=== PATIENT | female | born 1995 | race Caucasian/White ===

== ENCOUNTER 2022-12-27 12:03 | Emergency (ER) | payer BC ==
[2022-12-27] MEDS ORDERED: Ketorolac 30 MG/ML SDV IVPUSH ONE (12:34)
[2022-12-27] MEDS ORDERED: Metoclopramide 10 MG/2 ML SDV IVPUSH ONE (12:34)
[2022-12-27] MEDS ORDERED: diphenhydrAMINE 50 MG/ML SDV IVPUSH ONE (12:40)
[2022-12-27] MEDS: Sodium Chloride 0.9% 1,000 ML IV ONE ×2 (12:54→13:10)
[2022-12-27] MEDS ORDERED: Dexamethasone 10 MG/ML SDV IVPUSH ONE (15:01)
== END 2022-12-27 15:53 | disposition home or self-care (01) ==
LOC: MW.ED 12:03
DX: G43.909 Migraine, unspecified, not intractable, without status migrainosus (principal); Z88.0 Allergy status to penicillin; Z91.040 Latex allergy status; Z86.16 Personal history of COVID-19
CPT/HCPCS: 96361; 96374; 96375; 99283; J1100; J1200; J1885; J2765; J7030

== ENCOUNTER 2023-01-29 20:39 | Emergency (ER) | payer BC ==
[2023-01-29] MEDS ORDERED: Sodium Chloride 0.9% 2.5 ML Syringe FLUSH PRN (21:04)
[2023-01-29] MEDS ORDERED: Sodium Chloride 0.9% 10 ML Syringe FLUSH PRN (21:04)
[2023-01-29] MEDS ORDERED: Sodium Chloride 0.9% 1,000 ML IV STA (21:06)
[2023-01-29] MEDS ORDERED: Ondansetron 4 MG/2 ML SDV IVPUSH STA (21:06)
[2023-01-29] MEDS ORDERED: Ketorolac 30 MG/ML SDV IVPUSH STA (21:07)
[2023-01-29 22:01] LABS: CARBON DIOXIDE,CO2 27.5 mmol/L (21.0-32.0); POTASSIUM,K 3.4 mmol/L (3.5-5.1)
[2023-01-29 22:59] LABS: C. TRACHOMATIS BY PCR NOT DETECTED; N. GONORRHOEAE BY PCR NOT DETECTED
[2023-01-29] MEDS ORDERED: HYDROmorphone 1 MG/ML Syringe IVPUSH ONE (23:35)
== END 2023-01-30 00:36 | disposition home or self-care (01) ==
LOC: MW.ED 20:39
DX: N83.201 Unspecified ovarian cyst, right side (principal); Z86.16 Personal history of COVID-19; Z91.040 Latex allergy status; Z88.0 Allergy status to penicillin
CPT/HCPCS: 36415; 76830; 80053; 81003; 84702; 85025; 87480; 87491; 87510; 87591; 87660; 96361; 96374; 96375; 99284; J1170; J1885; J2405; J3490; J7030

== ENCOUNTER 2023-02-11 14:20 | Emergency (ER) | payer BC ==
[2023-02-11] MEDS ORDERED: Sodium Chloride 0.9% 1,000 ML IV ONE (14:25)
[2023-02-11 15:17] LABS: BASOPHILS PERCENT AUTO 0.3 % (0.0-1.5); EOSINOPHILS PERCENT AUTO 0.3 % (0.0-7.0); HEMATOCRIT 43.6 % (36.0-46.0); HEMOGLOBIN 15.2 g/dL (12.0-16.0); LYMPHOCYTES ABSOLUTE AUTO 1.9 K/uL (0.6-2.4); LYMPHOCYTES PERCENT AUTO 24.7 % (16.0-40.0); MEAN CORPUSCULAR HEMOGLOBIN 30.8 pg (27.0-32.0); MEAN CORPUSCULAR HGB CONC 34.9 g/dL (31.0-37.0); MEAN CORPUSCULAR VOLUME 88.3 fL (80.0-98.0); MONOCYTES ABSOLUTE AUTO 0.7 K/uL (0.0-0.8); MONOCYTES PERCENT AUTO 9.4 % (0.0-15.0); NEUTROPHILS ABSOLUTE AUTO 5.1 K/uL (1.4-5.7); NEUTROPHILS PERCENT AUTO 65.3 % (48.0-80.0); NRBC ABSOLUTE 0 K/uL; PLATELET COUNT,PLT 202 K/uL (150-400); RED BLOOD CELL COUNT 4.94 M/uL (4.30-5.90); WHITE BLOOD CELL COUNT,WBC 7.77 K/uL (4.0-11.0)
[2023-02-11 15:19] LABS: APPEARANCE,URINE CLEAR; BILIRUBIN,URINE NEGATIVE (NEGATIVE); COLOR,URINE YELLOW; GLUCOSE,URINE NEGATIVE (NEGATIVE); KETONES,URINE NEGATIVE (NEGATIVE); LEUKOCYTE ESTERASE,URINE NEGATIVE (NEGATIVE); NITRITE,URINE NEGATIVE (NEGATIVE); OCCULT BLOOD,URINE NEGATIVE (NEGATIVE); PH,URINE 5.5 (5.0-8.0); PROTEIN,URINE NEGATIVE (NEGATIVE); UROBILINOGEN,URINE 0.2 EU/dL (<2.0)
[2023-02-11 15:48] LABS: A/G RATIO 1.2 (0.9-1.6); ALBUMIN 4.1 g/dL (3.4-5.0); BILIRUBIN TOTAL 0.4 mg/dL (0.2-1.0); CARBON DIOXIDE,CO2 25.2 mmol/L (21.0-32.0); CREATININE 0.9 mg/dL (0.6-1.0); EST CRCL DRUG DOSING (CG) 71.97 mL/min; POTASSIUM,K 3.4 mmol/L (3.5-5.1); PROTEIN TOTAL,TP 7.5 g/dL (6.4-8.2)
== END 2023-02-11 17:12 | disposition home or self-care (01) ==
LOC: MW.ED 14:20
DX: R55 Syncope and collapse (principal); Z91.040 Latex allergy status; Z88.0 Allergy status to penicillin; Z86.16 Personal history of COVID-19
CPT/HCPCS: 36415; 70450; 80053; 81003; 81025; 84484; 85025; 93005; 96360; 99284; J7030; 93010; 99283